=== PATIENT | female | born 1995 | race Caucasian/White ===

== ENCOUNTER 2017-01-15 15:04 | Emergency (ER) | payer OTHER ==
--- NOTE | ~2017-01-15 | EKG ---
PATIENT: CONY BECERRA UNIT #: [id number] Ventricular Rate: 142 BPM Atrial Rate: 142 BPM P-R Interval: 136 ms QRS Duration: 76 ms Q-T Interval: 348 ms QTC Calculation(Bezet): 535 ms P [place]: 83 degrees Calculated R [place]: 84 degrees Calculated T [place]: 74 degrees Diagnosis Line: Sinus tachycardia Diagnosis Line: Nonspecific ST and T wave abnormality Diagnosis Line: Abnormal ECG Diagnosis Line: When compared with ECG of 06-APR-2015 17:00, Diagnosis Line: Vent. rate has increased BY 72 BPM Diagnosis Line: Non-specific change in ST segment in Anterolateral Diagnosis Line: leads Diagnosis Line: T wave inversion now evident in Anterior leads Diagnosis Line: Confirmed by MALDONADO KO MD ([id number]) on 01/16/2017 Diagnosis Line: 6:14:42 AM INTERPRETING MD: MAIKEL CARTER
--- NOTE | ~2017-01-15 | CR210 ---
[facility] A Service of [facility] RADIOLOGY TEXT RESULTS PATIENT: CONY BECERRA LOCATION: [facility] : [birth year] UNIT #: [id number] AGE: [address]: Jimmie Villanueva MD SEX: F ORDER DR: [id number] [facility] [address] [place], [place] [address] [id number] E MR#: [id number] #: [id number] NAME: CONY BECERRA. : 1995 SEX: F STUDY DATE/TIME: 01/15/2017 16:18 UNIT: [facility] ROOM: STUDY DESCRIPTION: CR Ribs Uni 2 View W PA Ch Lt Attending Physician: Jimmie Villanueva M.D. Ordering Physician: Jimmie Villanueva M.D. MEDICAL IMAGING REPORT This report is preliminary unless electronic signature is present EXAM Ribs left with a chest x-ray TECHNIQUE 2 views left ribs and a frontal view chest reviewed. Left rib pain. for a week. No known injury per patient. COMPARISON STUDIES There is a previous chest x-ray comparison from 04/06/2015. FINDINGS 2 views left ribs reviewed. There are fractures of the left sixth and seventh ribs laterally which appear recent with minimal displacement. Please correlate for any history of unreported or possible forgotten trauma. This is unusual otherwise in a 21-year-old patient. No pneumothorax or pleural effusion is suspected. Again, there is asymmetric enlargement of the left hilum with some calcification and probably a calcified granuloma in the left lower lobe. This is chronic. No acute infiltrate. No pneumothorax. Heart size normal. IMPRESSION 1. There are recent-appearing fractures with minimal displacement left sixth and seventh ribs laterally. Please correlate further clinically for unreported or possibly forgotten trauma. It is unusual for fractures to occur in a 21-year-old patient without known traumatic insult. 2. Evidence for old granulomatous disease with stable enlargement of the left hilum when comparison to study of 04/06/2015. There is no pleural effusion or pneumothorax. * [facility] A Service of [facility] RADIOLOGY TEXT RESULTS PATIENT: CONY BECERRA LOCATION: [facility] : [birth year] UNIT #: [id number] AGE: [address]: Jimmie Villanueva MD SEX: F ORDER DR: Dictated by... Amber Mckeon M.D. THIS IS AN ELECTRONICALLY VERIFIED REPORT Amber Mckeon M.D. at 01/16/2017 8:07 AM SAC/pcl TD: 01/15/2017 20:52 JOB #: [id number] MEDICAL IMAGING REPORT Page 1 of 1 COPY
[2017-01-15 14:58] LABS: BASOPHIL% 0.5 % (0-2.5); EOSINOPHIL# 0.2 X10e3 (0-0.7); EOSINOPHIL% 2.6 % (0.0-7.0); HEMATOCRIT 42.4 % (35.0-45.0); LYMPHOCYTE# 2.1 X10e3 (1.0-3.5); LYMPHOCYTE% 26.7 % (17.0-45.0); MEAN CELL VOLUME 91.3 FL (83-96); MEAN CORPUSCULAR HEMOGLOBIN 30.2 PG (28-34); MEAN CORPUSCULAR HGB CONC 33.1 g/dL (30-36); MEAN PLATELET VOLUME 7.8 FL (6.5-11.5); MONOCYTE# 0.6 X10e3 (0-1.0); NEUTROPHIL# 4.9 X10e3 (1.5-7.1); NEUTROPHIL% 62.2 % (40-75); PLATELET COUNT 222 X10e3 (140-420); RED BLOOD COUNT 4.65 X10e (3.90-5.30); RED CELL DISTRIBUTION WIDTH 13.9 % (11.0-15.5); WHITE BLOOD COUNT 7.9 X10e3 (4.0-10.5)
[~2017-01-15 15:04] MED LIST: CELEXA10 MG PO; DEPO-PROVER150 MG/ML INJ; VISTARIL PO
[2017-01-15 15:12] LABS: DIFF IND NO
[2017-01-15 15:14] LABS: ALBUMIN SERUM 4.1 g/dL (3.5-5.0); BILIRUBIN, DIRECT 0.2 mg/dL (0.0-0.2); BILIRUBIN,INDIRECT 0.7 mg/dL (0.0-0.9); BILIRUBIN,TOTAL 0.9 mg/dL (0.2-2.0); BUN/CREATININE RATIO 11.25; CALCIUM SERUM 9.1 mg/dL (8.4-10.2); CREATININE SERUM 0.8 mg/dL (0.6-1.4); GLOM FILT RATE Estimated 106.2 mL/min (>60); POTASSIUM 4.3 mmol/L (3.5-5.1); PROTEIN TOTAL SERUM 6.5 g/dL (6.0-8.3)
[2017-01-15 16:59] LABS: AMPHETAMINE POS (NEG); BARBITURATES NEG (NEG); BENZODIAZEPINES NEG (NEG); COCAINE NEG (NEG); MARIJUANA POS (NEG); OPIATES NEG (NEG); TRICYCLIC ANTIDEPRESSANTS NEG (NEG); U METHADONE NEG (NEG)
== END 2017-01-15 17:32 | disposition home or self-care (01) ==
LOC: CED 15:04
PROVIDERS: Emergency Medicine
DX: S22.42XA Multiple fractures of ribs, left side, initial encounter for closed fracture (principal); F41.9 Anxiety disorder, unspecified; R00.0 Tachycardia, unspecified; F17.200 Nicotine dependence, unspecified, uncomplicated; X58.XXXA Exposure to other specified factors, initial encounter; Y92.9 Unspecified place or not applicable
CPT/HCPCS: 36415; 71101; 80048; 80076; 80307; 83735; 84443; 84703; 85025; 85379; 93005; 96361; 96374; 99284; J2060